=== PATIENT | male | born 1990 | race Caucasian/White ===

== ENCOUNTER 2016-09-25 16:08 | Observation (INO) | payer OTHER, MEDICAID, SELFPAY ==
[2016-09-25 16:20] VITALS: BMI 25.6
[2016-09-25 16:51] VITALS: BP 131/57; PULSE 67; RESP 18; TEMP 36.7
[2016-09-25 16:52] VITALS: PULSE 67
[2016-09-25] MEDS: cloNIDine HCl 0.1 MG Tablet 0.2 MG PO (16:57)
[2016-09-25] MEDS: Dicyclomine 10 MG Capsule 20 MG PO (16:57)
[2016-09-25] MEDS: Buprenorphine HCl 2 MG TAB.SUBL SL (16:58)
[2016-09-25] MEDS: Methocarbamol 750 MG Tablet PO (16:58)
[2016-09-25] MEDS: Carbidopa/Levodopa 25/100 Tablet PO (16:58)
--- NOTE | 2016-09-25 17:02 | HP.PCM_ITS ---
Problem List (1) Heroin withdrawal Status: Acute (2) Anxiety Status: Acute (3) Restless legs Status: Acute (4) Nicotine abuse Status: Chronic History of Present Illness Date of Admission: 09/25/16 Chief Complaint: Heroin withdrawal The patient is a 26 year old M who presented to the [facility] through [facility] for heroin withdrawal. He moved here from [place] a few days ago where he was using 1 to 1.5g of tar heroin per day. Since being here he is using somewhat less because he is getting heroin mixed with carfentanyl. He last used today about 5AM. He has been through rehab multiple times but continues to go back to heroin. He denies any other drug use. He plans to stay sober by staying in a sober house. His withdrawal symptoms currently include hot and cold back sensations, back pain, anxiety, restless legs and arms, watery eyes, and yawning. No N/V/D. [] Past Medical History Past Medical History (Chronic Problems): Chronic Problems Nicotine abuse (Chronic) Allergies phenobarbital Allergy (Verified 09/25/16 16:31) Rash Home Medications: Ambulatory Orders Medication Instructions Recorded Gabapentin [Neurontin] 800 mg PO Q6H 09/25/16 Propranolol HCl [Inderal] 40 mg PO TID PRN PRN 09/25/16 Lives: Alone Smoking Status: Current every day smoker Tobacco Use: Cigarettes Alcohol: None Drugs: None - *Family History Maternal History Items: No pertinent history Paternal History Items: No pertinent history Sibling History Items: No pertinent history Review of Systems Constitutional: Denies: Chills, Fever, Weight Change Eyes: Reports: Drainage - watery eyes HEENT: Denies: Difficulty Hearing, Head Aches, Sinus Congestion, Sinus Drainage Cardiovascular: Denies: Chest Pain, Chest Pressure, Chest Tightness, Edema, Heaviness, Light Headedness, Palpitations, Syncope Respiratory: Denies: Cough, Pleuritic Pain, Shortness of Breath, Shortness of breath at rest, Sputum production, Wheezing Gastrointestinal: Denies: Abdominal Pain, Diarrhea, Nausea, Vomiting Genitourinary: Denies: Dysuria Musculoskeletal: Denies: Joint Pain, Joint Tenderness Skin: Denies: Rash, Wounds Neurological: Reports: Tremor - shaky hands and legs.. Denies: Focal weakness, Numbness, Tingling Psychiatric: Reports: Anxiety. Denies: Depression, Homicidal Ideations, Suicidal Ideations Hematologic/ Lymphatic: Denies: Easy Bruising, Easy Bleeding VTE Information - Inpt Only VTE Present on Admission: No VTE Mechan Device Prophylaxis: None VTE Pharm Prophylaxis ordered?: No Reason prophylaxis not ordered:: Procedure Not Indicated Patient Problems: Active and Suspected Problems Anxiety (Acute) Heroin withdrawal (Acute) Restless legs (Acute) - Physical Exam General: Alert, Oriented x3, Cooperative HEENT: Atraumatic, PERRLA, EOMI, Normocephalic Neck: Supple, No JVD, Negative Carotid Bruits Lungs: Clear to auscultation, Normal air movement Cardiovascular: Regular rate, No murmurs Abdomen: Bowel Sounds Present, Soft, Non Tender Extremities: No edema, Capillary Refill Less than 3 Seconds Skin: No rashes, No breakdown Musculoskeletal: No Tenderness to Palpation of Joints or Extremities Neurological: Cranial nerves II-XII grossly intact Psych/Mental Status: Normal Affect, Appropriate, Alert and oriented to time, place, person, mood and affect Vital Signs Temp Pulse Resp BP Pulse Ox 98.1 F 67 18 131/57 09/25/16 16:51 09/25/16 16:51 09/25/16 16:51 09/25/16 16:51 Weight: 85.7 kg Body Mass Index (BMI) 25.6 Assessment/Plan Active and Suspected Problems Anxiety (Acute) Heroin withdrawal (Acute) Restless legs (Acute) A/P: 1. Heroin withdrawal - initiate [facility] for heroin withdrawal. Pt currently having mild symptoms. 2. Nicotine abuse - patch. smokes 1 ppd. 3. Hx of anxiety and restless legs for which he takes gabapentin and propranolol - continue these. DC planning: [place]
[2016-09-25] MEDS: Gabapentin 800 MG Tablet PO (17:47)
[2016-09-25 18:39] LABS: Hematocrit 39.5 % (40-54); Hemoglobin 13.6 g/dl (13.0-16.5); Mean Corp Hgb Conc 34.4 g/gl (32-36); Mean Corpuscular Hgb 31.9 pg (27.0-32.0); Mean Corpuscular Volume 92.7 fL (80-94); Mean Platelet Vol. 9.5 fl (6.2-12.0); Platelet Count 199 K/mm3 (150-450); RBC Distribution Width CV 12.8 % (11.6-14.6); RBC Distribution Width SD 43.3 fl (35.1-43.9); Red Blood Count 4.26 M/mm3 (4.6-6.2); White Blood Count 5.1 K/mm3 (4.4-11.0)
[2016-09-25 18:46] LABS: Scan Indicated on CBC? Y/N NO
[2016-09-25 18:58] LABS: Anion Gap 6 (5-15); BUN 12 mg/dL (7-18); BUN/Creat Ratio 12.8 RATIO (10-20); Calcium,Total 8.2 mg/dL (8.5-10.1); Chloride 110 mmol/L (98-107); Creatinine, Serum 0.94 mg/dL (0.70-1.30); EST Glomerular Filtration Rate 105 mL/min (>60); Est Glom Filt Rate - Afr Amer 127 mL/min (>60); Glucose 134 mg/dL (70-110); Potassium 3.5 mmol/L (3.5-5.1); Sodium Level 145 mmol/L (136-145)
[2016-09-25] MEDS: chlordiazePOXIDE 25 MG Capsule PO (21:20)
[2016-09-25] MEDS: QUEtiapine 25 MG Tablet PO (21:20)
[2016-09-25 22:00] VITALS: BP 129/67; PULSE 78; RESP 16; TEMP 36.7
[2016-09-25 23:19] VITALS: O2SAT 98
[2016-09-26] MEDS: Gabapentin 800 MG Tablet PO ×5 (00:48→23:44)
[2016-09-26] MEDS: Buprenorphine HCl 2 MG TAB.SUBL SL ×4 (00:48→23:44)
[2016-09-26] MEDS: Carbidopa/Levodopa 25/100 Tablet PO ×3 (00:48→23:53)
[2016-09-26] MEDS: Methocarbamol 750 MG Tablet PO ×4 (00:48→23:53)
[2016-09-26 02:00] VITALS: BP 106/45; PULSE 61; RESP 18; TEMP 36.9
[2016-09-26] MEDS: chlordiazePOXIDE 25 MG Capsule PO ×3 (05:13→18:58)
[2016-09-26] MEDS: QUEtiapine 25 MG Tablet PO ×3 (05:13→23:52)
[2016-09-26 06:00] VITALS: BP 111/46; PULSE 56; RESP 18; TEMP 36.3
[2016-09-26 08:07] VITALS: BP 116/61; PULSE 53; RESP 14; TEMP 36.6
[2016-09-26 08:32] VITALS: O2SAT 96
--- NOTE | 2016-09-26 08:38 | PN_ITS ---
Patient Problems: Active and Suspected Problems Anxiety (Acute) Heroin withdrawal (Acute) Restless legs (Acute) Subjective: Chief complaint: Follow-up after admission for opioid withdrawal for medical stabilization. Patient seen and examined. No acute events overnight. He reported improvement of his symptoms compared to yesterday, still having back pain and cold and hot sweats. Vital signs are stable. - Physical Exam General: Alert, Oriented x3, Cooperative, No apparent distress HEENT: Atraumatic, PERRLA, EOMI Oral: Moist Mucosa, No Gingival or Mucosal Lesions/ Ulcerations Neck: Supple, No JVD, Negative Carotid Bruits, Thyroid Normal Size and Texture Lungs: Clear to auscultation, No rhonchi, No wheeze, No rales Cardiovascular: Regular rate, Regular Rhythm, Normal S1, Normal S2 Abdomen: Bowel Sounds Present, Soft, Non Tender, Non-Distended, No Hepato- splenomegaly Extremities: No clubbing, No cyanosis, No edema Skin: No rashes, No breakdown Lymphatic: No Cervical, Supraclavicular, or Inguinal Adenopathy Neurological: Neuro grossly intact Psych/Mental Status: Normal Affect, Appropriate Vital Signs Temp Pulse Resp BP Pulse Ox 97.8 F 53 14 116/61 96 09/26/16 08:07 09/26/16 08:07 09/26/16 08:07 09/26/16 08:07 09/26/16 08:32 Oxygen Delivery Method Room Air Weight: 188 lb 14.978 oz Body Mass Index (BMI) 25.6 Intake and Output for Last 24 Hours 09/24/16 09/25/16 09/26/16 23:59 23:59 23:59 Intake Total 1600 Balance 1600 Laboratory Tests Past 24 Hrs 09/25/16 09/25/16 18:15 18:15 WBC 5.1 RBC 4.26 L Hgb 13.6 Hct 39.5 L MCV 92.7 MCH 31.9 MCHC 34.4 RDW 12.8 RDW Differential 43.3 Plt Count 199 MPV 9.5 Sodium 145 Potassium 3.5 Chloride 110 H Carbon Dioxide 29.0 Anion Gap 6 BUN 12 Creatinine 0.94 Estim Creat Clear Calc 133.00 Est GFR (MDRD) Af Amer 127 Est GFR (MDRD) Non-Af 105 BUN/Creatinine Ratio 12.8 Glucose 134 H Calcium 8.2 L Assessment/Plan Active and Suspected Problems Anxiety (Acute) Heroin withdrawal (Acute) Restless legs (Acute) This is a 26 years old male patient admitted because of withdrawal symptoms after has been using IV heroin for a long time and he was admitted for medical stabilization with [facility]. #1 opioid withdrawal: He is on [facility] protocol with tapering course of Subutex, as needed Sinemet, Librium, Catapres, Bentyl, Vistaril, methocarbamol, and Seroquel. His vital signs are stable. He reported mild improvement of his symptoms. His routine blood work was unremarkable. Patient has been using IV heroin, admitted smoking crack cocaine as well. Last use was yesterday morning. Plan: Continue same treatment. #2 anxiety/restless leg syndrome: Continue propranolol and gabapentin. #3 tobacco abuse: On NicoDerm patch. #4 DVT prophylaxis: Low risk patient, no prophylaxis indicated. This note was generated with [employer] dictation software. It may contain incorrect words, spelling, and punctuation that were not noted in checking the note before signing.
[2016-09-26 14:00] VITALS: BP 127/54; PULSE 69; RESP 14; TEMP 36.9
[2016-09-26 21:25] VITALS: BP 127/71; PULSE 61; RESP 16; TEMP 36.9
[2016-09-26] MEDS: Mag Hydrox/Al Hydrox/Simeth 30 ML UDC PO (22:53)
[2016-09-27] MEDS: chlordiazePOXIDE 25 MG Capsule PO ×4 (01:01→20:10)
[2016-09-27] MEDS: cloNIDine HCl 0.1 MG Tablet PO ×2 (01:04→18:18)
--- NOTE | 2016-09-27 07:20 | PCM.PROGNOTE ---
Patient Problems: Active and Suspected Problems Anxiety (Acute) Heroin withdrawal (Acute) Restless legs (Acute) Subjective: Chief complaint: Follow-up after admission for opioid withdrawal for medical stabilization. Patient seen and examined. No acute events overnight. He complained of some insomnia overnight, could not sleep. Other symptoms has been improving. Vital signs are stable. - Physical Exam General: Alert, Oriented x3, Cooperative, No apparent distress HEENT: Atraumatic, PERRLA, EOMI Oral: Moist Mucosa, No Gingival or Mucosal Lesions/ Ulcerations Neck: Supple, No JVD, Negative Carotid Bruits, Thyroid Normal Size and Texture Lungs: Clear to auscultation, Normal air movement, No rhonchi, No wheeze, No rales Cardiovascular: Regular rate, Regular Rhythm, Normal S1, Normal S2, PMI Normal Abdomen: Bowel Sounds Present, Soft, Non Tender, Non-Distended, No Hepato-splenomegaly Extremities: No clubbing, No cyanosis, No edema Skin: No rashes, No breakdown Neurological: Neuro grossly intact Psych/Mental Status: Normal Affect, Appropriate Vital Signs Temp Pulse Resp BP Pulse Ox 98.5 F 61 16 127/71 96 09/26/16 21:25 09/26/16 21:25 09/26/16 21:25 09/26/16 21:25 09/26/16 08:32 Oxygen Delivery Method Room Air Weight: 188 lb 14.978 oz Body Mass Index (BMI) 25.6 Intake and Output for Last 24 Hours 09/25/16 09/26/16 09/27/16 23:59 23:59 23:59 Intake Total 3200 Balance 3200 Assessment/Plan Active and Suspected Problems Anxiety (Acute) Heroin withdrawal (Acute) Restless legs (Acute) This is a 26 years old male patient admitted because of withdrawal symptoms after has been using IV heroin for a long time and he was admitted for medical stabilization with [facility]. #1 opioid withdrawal: Remained on [facility] protocol with tapering course of Subutex, as needed Sinemet, Librium, Catapres, Bentyl, Vistaril, methocarbamol, and Seroquel. His vital signs and stable. He reported continuing improvement of his symptoms except insomnia. His routine blood work was unremarkable. Patient has been using IV heroin, admitted smoking crack cocaine as well. Plan: Continue same treatment. #2 anxiety/restless leg syndrome: Continue propranolol and gabapentin. #3 tobacco abuse: On NicoDerm patch. #4 DVT prophylaxis: Low risk patient, no prophylaxis indicated. This note was generated with [employer] dictation software. It may contain incorrect words, spelling, and punctuation that were not noted in checking the note before signing.
[2016-09-27] MEDS: Gabapentin 800 MG Tablet PO ×3 (07:34→18:18)
[2016-09-27] MEDS: Buprenorphine HCl 2 MG TAB.SUBL SL ×2 (08:26→20:10)
[2016-09-27 10:00] VITALS: BP 143/80; PULSE 81; RESP 18; TEMP 37.1
[2016-09-27] MEDS: Carbidopa/Levodopa 25/100 Tablet PO ×2 (10:01→18:18)
--- NOTE | 2016-09-27 11:18 | NURSING ---
Pt continues to be up and restless , walking in hallways. Noted periods where he lays in bed texting on phone and watching tv. Continue to offer seroquell for anxiety but refuses. Education provided but still refuses.
[2016-09-27 13:55] VITALS: BP 133/73; PULSE 76; RESP 18; TEMP 36.8
[2016-09-27 14:14] VITALS: O2SAT 95
[2016-09-27] MEDS: Methocarbamol 750 MG Tablet PO (18:18)
[2016-09-27] MEDS: QUEtiapine 25 MG Tablet PO (18:24)
[2016-09-27 18:53] VITALS: BP 148/85; PULSE 79; RESP 18; TEMP 37.1
[2016-09-27 20:01] VITALS: BP 118/72; PULSE 89; RESP 16; TEMP 36.9
[2016-09-28] VITALS (8 sets, daily range): BP systolic 114–150; BP diastolic 68–92; PULSE 71–103; RESP 16–18; TEMP 37.1–37.3; O2SAT 98
[2016-09-28] MEDS: Gabapentin 800 MG Tablet PO ×4 (00:26→17:56)
[2016-09-28] MEDS: QUEtiapine 25 MG Tablet PO ×3 (00:26→20:14)
[2016-09-28] MEDS: Methocarbamol 750 MG Tablet PO ×4 (00:26→21:42)
--- NOTE | 2016-09-28 00:30 | NURSING ---
Pt awakened for Gabapentin. Requesting other PRNs at this time. Was upset that Librium was not due until after 0200. Pt asked this nurse to take him outside to smoke. Pt reminded of signed contract. Nicotine Gum offered, refused. Pt instant that he will try to stay awake until Librium is due. This RN encouraged sleep, education provided on PRNs.
--- NOTE | 2016-09-28 00:46 | NURSING ---
AMBULATING IN [place], GAVE SNACKS.
[2016-09-28] MEDS: chlordiazePOXIDE 25 MG Capsule PO ×3 (05:26→20:14)
[2016-09-28] MEDS: Carbidopa/Levodopa 25/100 Tablet PO ×2 (08:32→17:56)
[2016-09-28] MEDS: Buprenorphine HCl 2 MG TAB.SUBL SL (08:32)
[2016-09-28] MEDS: Dicyclomine 10 MG Capsule 20 MG PO ×3 (08:32→21:40)
[2016-09-28] MEDS: cloNIDine HCl 0.1 MG Tablet PO (09:21)
[2016-09-28] MEDS: Propranolol 40 MG Tablet PO (09:21)
--- NOTE | 2016-09-28 09:21 | PCM.PROGNOTE ---
Patient Problems: Active and Suspected Problems Anxiety (Acute) Heroin withdrawal (Acute) Restless legs (Acute) Subjective: Chief complaint: Follow-up after admission for opioid withdrawal for medical stabilization. Patient seen and examined. No acute events overnight. This morning, he complains of muscle cramps mainly in both legs, complaint of some back pain. He was adamant to stay today and go home tomorrow. Vital signs are stable. - Physical Exam General: Alert, Oriented x3, Cooperative, No apparent distress HEENT: Atraumatic, PERRLA, EOMI Oral: Moist Mucosa, No Gingival or Mucosal Lesions/ Ulcerations Neck: Supple, No JVD, Negative Carotid Bruits, Trachea Midline, Thyroid Normal Size and Texture Lungs: Clear to auscultation, Normal air movement, No rhonchi, No wheeze, No rales Cardiovascular: Regular rate, Regular Rhythm, Normal S1, Normal S2, PMI Normal Abdomen: Bowel Sounds Present, Soft, Non Tender, Non-Distended, No Hepato-splenomegaly Extremities: No clubbing, No cyanosis, No edema Skin: No rashes, No breakdown Neurological: Neuro grossly intact Psych/Mental Status: Normal Affect, Appropriate Vital Signs Temp Pulse Resp BP Pulse Ox 98.9 F 103 18 150/92 95 09/28/16 09:14 09/28/16 09:14 09/28/16 09:14 09/28/16 09:14 09/27/16 14:14 Oxygen Delivery Method Room Air Weight: 188 lb 14.978 oz Body Mass Index (BMI) 25.6 Intake and Output for Last 24 Hours 09/26/16 09/27/16 09/28/16 23:59 23:59 23:59 Intake Total 3200 700 920 Balance 3200 700 920 Assessment/Plan Active and Suspected Problems Anxiety (Acute) Heroin withdrawal (Acute) Restless legs (Acute) This is a 26 years old male patient admitted because of withdrawal symptoms after has been using IV heroin for a long time and he was admitted for medical stabilization with [facility]. #1 opioid withdrawal: Remained on [facility] protocol with tapering course of Subutex, as needed Sinemet, Librium, Catapres, Bentyl, Vistaril, methocarbamol, and Seroquel. His vital signs remained stable. Today, he complained of muscle cramps and spasm as well as mild low back pain. This is likely because he wants to stay. His routine blood work was unremarkable. Patient has been using IV heroin, admitted smoking crack cocaine as well. Plan: Continue same treatment, DC home tomorrow. #2 anxiety/restless leg syndrome: Continue propranolol and gabapentin. #3 tobacco abuse: On NicoDerm patch. #4 DVT prophylaxis: Low risk patient, no prophylaxis indicated. This note was generated with [employer] dictation software. It may contain incorrect words, spelling, and punctuation that were not noted in checking the note before signing.
--- NOTE | 2016-09-28 09:25 | PN_ITS ---
Patient Problems: Active and Suspected Problems Anxiety (Acute) Heroin withdrawal (Acute) Restless legs (Acute) Subjective: Chief complaint: Follow-up after admission for opioid withdrawal for medical stabilization. Patient seen and examined. No acute events overnight. This morning, he complains of muscle cramps mainly in both legs, complaint of some back pain. He was adamant to stay today and go home tomorrow. Vital signs are stable. - Physical Exam General: Alert, Oriented x3, Cooperative, No apparent distress HEENT: Atraumatic, PERRLA, EOMI Oral: Moist Mucosa, No Gingival or Mucosal Lesions/ Ulcerations Neck: Supple, No JVD, Negative Carotid Bruits, Trachea Midline, Thyroid Normal Size and Texture Lungs: Clear to auscultation, Normal air movement, No rhonchi, No wheeze, No rales Cardiovascular: Regular rate, Regular Rhythm, Normal S1, Normal S2, PMI Normal Abdomen: Bowel Sounds Present, Soft, Non Tender, Non-Distended, No Hepato- splenomegaly Extremities: No clubbing, No cyanosis, No edema Skin: No rashes, No breakdown Neurological: Neuro grossly intact Psych/Mental Status: Normal Affect, Appropriate Vital Signs Temp Pulse Resp BP Pulse Ox 98.9 F 103 18 150/92 95 09/28/16 09:14 09/28/16 09:14 09/28/16 09:14 09/28/16 09:14 09/27/16 14:14 Oxygen Delivery Method Room Air Weight: 188 lb 14.978 oz Body Mass Index (BMI) 25.6 Intake and Output for Last 24 Hours 09/26/16 09/27/16 09/28/16 23:59 23:59 23:59 Intake Total 3200 700 920 Balance 3200 700 920 Assessment/Plan Active and Suspected Problems Anxiety (Acute) Heroin withdrawal (Acute) Restless legs (Acute) This is a 26 years old male patient admitted because of withdrawal symptoms after has been using IV heroin for a long time and he was admitted for medical stabilization with [facility]. #1 opioid withdrawal: Remained on [facility] protocol with tapering course of Subutex, as needed Sinemet, Librium, Catapres, Bentyl, Vistaril, methocarbamol, and Seroquel. His vital signs remained stable. Today, he complained of muscle cramps and spasm as well as mild low back pain. This is likely because he wants to stay. His routine blood work was unremarkable. Patient has been using IV heroin, admitted smoking crack cocaine as well. Plan: Continue same treatment, DC home tomorrow. #2 anxiety/restless leg syndrome: Continue propranolol and gabapentin. #3 tobacco abuse: On NicoDerm patch. #4 DVT prophylaxis: Low risk patient, no prophylaxis indicated. This note was generated with [employer] dictation software. It may contain incorrect words, spelling, and punctuation that were not noted in checking the note before signing.
[2016-09-28] MEDS: Mag Hydrox/Al Hydrox/Simeth 30 ML UDC PO (17:56)
--- NOTE | 2016-09-28 19:05 | NURSING ---
Pt at desk demanding for all medications that are due and Librium especially. Pt asked to return to room and reminded that medication not due at this time. Pt paced in hallways to food station and to room multiple times.
--- NOTE | 2016-09-28 20:18 | NURSING ---
pt came to desk asking for all the meds he can get he feels like crap, asked pt to return to his room and nursing would be in with medication. primary rn tied up with another pt. this rn in to medicate, pt argumentative with nurse states he wants every med available given to him, yann, crack, pills redirected pt to what meds were being given (seroquel & librium) per order. pt became verbally abusive to this rn stated this rn was lazy and just didnt want to give him all the pills he wants and demanding this rn get more meds for him, asked this rn to borrow money so he could leave to buy street drugs. left room to give pt time to calm down pt followed rn to desk demanding more medication, yelling that staff are lazy , asked pt to return to his room, pt continued to argue about getting more meds. asked pt to return to his room or security would be called. pt then did return to his room. nursing supervisor rice milling notified and security notified. room camera on will monitor.
--- NOTE | 2016-09-28 21:20 | NURSING ---
pt up at the desk again asking for any meds that are due he states he has all the symptoms and wants every med that he can have. states he has diarrhea & constipation, sweating, aches. information security here and talked with pt regarding his behavior towards staff. primary rn at desk and explained to pt again that he was given what was due at the time for the symptoms he was having. pt agreed to return to room and primary rn would get what is due at this time for his symptoms. pt returned to his room.
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
--- NOTE | 2016-09-28 22:06 | NURSING ---
pt left room again with officer states to get coffee. gait steady. code whitney staff on floor. nursing supv here & will check with management to see what further action needs taken. pt returned to his room with security police officer.
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
--- NOTE | 2016-09-28 23:09 | NURSING ---
This nursing supervisor electronics processing called to unit due to code whitney. Upon entering [facility], pt in room with staff and HRO. Pt cooperative at that time. Nursing administration and [facility] staff made aware of situation. Dr. Douglas called to inform of situation and agrees pt needs to be discharged. HRO and 2 [employer] arrived on unit and informed staff of [facility]. At 2300, this nursing supervisor electronics processing and Dr. Douglas entered room and informed pt that he was being discharged due to [facility] contract being broken. Explained to pt that smoking is not permitted and his room was found to have the smell of cigarette smoke, along with the used cigarette and spool worker. Pt requesting to stay until morning. Stated he was not aware of what the contract said when he signed it because I was high when I signed that contract. [employer] entered room and informed pt he was under arrest. Pt's belongings bagged and given to [employer]. Pt left unit in handcuffs with 3 [employer] officers.
--- NOTE | 2016-09-28 23:10 | NURSING ---
Dr & nursing supv notified pt he has been discharged. Police here to escort pt from property
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
== END 2016-09-28 23:10 | DRG 897 ==
LOC: MS2 03-17 09:52
PROVIDERS: Admitting Provider Internal Medicine; Visit Provider Hospitalist
DX: F11.23 Opioid dependence with withdrawal (principal); F41.9 Anxiety disorder, unspecified; G25.81 Restless legs syndrome; F17.210 Nicotine dependence, cigarettes, uncomplicated; Z79.899 Other long term (current) drug therapy
CPT/HCPCS: 80048; 85027; 99218; 99406; G0378; G0379